=== PATIENT | female | born 1965 | race Caucasian/White ===

== ENCOUNTER 2025-10-29 14:15 | Outpatient (CLI) | payer OTHER, SELFPAY ==
--- OUTSIDE RECORDS SUMMARY | 2025-10-29 16:11 | XMS_ITS | Patient Health Record ---
Author Organization [facility] Address [address] [place], [place] [id number] Care Team Providers Care Laborer Prestressed Concrete Name Role Phone MARY TOMLIN Unavailable [phone] Reason For Referral No Information Social History Social History Additional Details Category Social Info Options Details Migrated Social History Migrated Social History Smoking Status : Current every day smoker , History of tobacco use : Current every day smoker , Alcohol intake : Plan Of Treatment No Information Insurance Providers Payer Name Payer Address Payer Phone Subscriber Number Group Number Insured Name Patient Relationship to Insured Coverage Start Date Coverage End Date [facility] [address] [place] [address] [id number] LINSEY MENJIVAR Self - patient is the insured
--- OUTSIDE RECORDS SUMMARY | 2025-10-29 16:11 | XMS_ITS | Clinical Summary ---
Author Organization [facility] [employer] Address [address] [place] [address] Care Team Providers Care Lead Front End Developer Name Role Phone [address] Primary Care Prov ider Source Comments [facility] [employer],non-owned Affiliates and Associated Physician Practices is amultiple site organization consisting of ambulatory clinics and hospital sitesin [place], [place], [place] and [place]. This disclosure is being madepursuant to the Care Everywhere program and may not contain all information available regarding this patient. Last updated 18.[facility] [employer] Allergies No known active allergies Medications * Be aware that medications may not be up to date on this document. Alwaysverify current medications with the patient. ferrous sulfate 325 (65 FE) MG tablet 02/28/2018 Active triamcinolone acetonide (KENALOG) 0.1 % cream Apply to affected area 2 times daily 30 g 1 04/07/2019 Active Social History Tobacco Use Types Packs/Day Years Used Date Smoking Tobacco: Every Day Smokeless Tobacco: Never Comments Unknown Sex and Gender Information Value Date Recorded Sex Assigned at Female 05/22/2023 5:34 PM CDT Legal Sex Female 9:20 AM CDT Gender Identity Female 05/22/2023 5:34 PM CDT Sexual Orientation Not on file Last Filed Vital Signs Vital Sign Reading Time Taken Comments Blood Pressure 102/60 04/26/2019 9:56 AM CDT Pulse 69 04/26/2019 9:56 AM CDT Temperature 36.3 C (97.4 F) 04/26/2019 9:56 AM CDT Respiratory Rate 16 04/26/2019 9:56 AM CDT Oxygen Saturation 99% 04/26/2019 9:56 AM CDT Inhaled Oxygen Concentration - - Weight 56.7 kg (125 lb) 04/26/2019 9:56 AM CDT Height 152.4 cm (5') 04/26/2019 9:56 AM CDT Body Mass Index 24.41 04/26/2019 9:56 AM CDT Plan of Treatment Health Maintenance Due Date Last Done Comments COLOGUARD (AGES 45-75) - COL ON CA SCREENING 1967 COLON MONITORING 1967 COLONOSCOPY - COLON CA SCREENING 1967 CT COLONOGRAPHY - COLON CA SCREENING 1967 Colorectal Cancer Screening 1967 FIT - COLON CA SCREENING 1967 FLEX SIG - COLON CA SCREENING 1967 LIPID TESTING 1967 MAMMOGRAM 1967 HIV SCREENING 1982 HEPATITIS C SCREENING 12/16/1985 DTAP/TDAP/TD VACCINES (1 - Tdap) 1986 HEPATITIS B VACCINE (1 of 3 - 19+ 3-dose series) 1986 PNEUMOCOCCAL VACCINE 50+ (1 of 1 - PCV) 2017 ZOSTER VACCINE (1 of 2) 2017 DEPRESSION SCREENING 11/08/2024 COVID-19 VACCINE (1 - 2024-2 6 season) 2025 INFLUENZA VACCINE (#1) 2025 HIB VACCINE Aged Out No longer eligi ble based on patient's age to complete this topic HPV VACCINE Aged Out No longer eligi ble based on patient's age to complete this topic MENINGOCOCCAL (Group B) VACC INE SHARED DECISION-MAKING Aged Out No longer eligibl e based on patient's age to complete this topic MENINGOCOCCAL GROUPS A/C/Y/W VACCINE Aged Out No longer eligible b ased on patient's age to complete this topic Insurance Care Teams Lead Front End Developer Relationship Specialty Start Date End Date [facility] [address] [place] [address] PCP - General Family Medicine 04/07/19
--- OUTSIDE RECORDS SUMMARY | 2025-10-29 16:11 | XMS_ITS | Clinical Summary ---
Author Organization [facility] Address [address] [place] [address] Care Team Providers Care Program Arranger Name Role Phone Melissa Ruiz NP Primary Care Provider + [phone] Allergies No known active allergies Medications ferrous sulfate 325 mg (65 mg of elemental iron) tablet 8 Active atorvastatin (LIPITOR) 20 mg tablet 9 Active CALCIUM 600 600 mg calcium (1,500 mg) tablet 600 mg 2 (two) times a day 9 Active cholecalciferol (VITAMIN D-3) 2,000 unit tablet 9 Active ALLERGY RELIEF,DIPHENHY DRAMIN, 25 mg capsule 9 Active EPINEPHrine 0.3 mg/0.3 mL auto-injection syringe 9 Active ibuprofen (ADVIL,MOTRIN) 800 mg tablet 9 Active triamcinolone (KENALOG) 0.1 % cream Apply topically 2 times daily 9 Active fluticasone furoate-vilante rol (BREO ELLIPTA) 100-25 mcg/dose diskus inhaler Inhale 1 puff daily Rinse mouth with water after use. Do not swallow. 1 each 3 9 Active albuterol HFA (PROVENTIL HFA,VENTOLIN HFA,PROAIR HFA) 90 mcg/actuation inhaler Inhale 2 puffs every 6 (six) hours as needed for wheezing or shortness of breath 1 Inhaler 3 0 Active lisinopriL (PRINIVIL,ZESTR [place]) 20 mg tablet Take 1 tablet (20 mg total) by mouth daily 120 tablet 0 Active Active Problems Problem Noted Date Diagnosed Date Facial paresthesia 07/23/2015 Iron deficiency anemia, unspecified 07/23/2015 Trigeminal neuralgia 01/23/2010 Surgical History Surgery Date Site/Laterality Comments [place] DSTRJ TRIGEMINAL NRV SUPRAORB INFRAORB BRANCH Craniotomy For Suboccipital Cranial Nerve Decompression - R trigeminal decompression, 03/25/2010 (Added by TW Conv) Medical History Medical History Date Comments Hypertension Smoking Family History Medical History Relation Name Comments Breast cancer Neg Hx Relation Name Status Comments Father Mother Social History Tobacco Use Types Packs/Day Years Used Date Smoking Tobacco: Every Day Cigarettes Comments:Started at age 32 Alcohol Use Standard Drinks/Week Comments Not Currently 0 (1 standard drink = 0.6 oz pur e alcohol) Comments No Sex and Gender Information Value Date Recorded Sex Assigned at Not on file Legal Sex Female 4:35 AM SHOT BLASTER Gender Identity Female 04/14/2022 8:44 AM CDT Sexual Orientation Not on file Obstetrics History Para Term AB IAB SAB Ectopic Multiple Livin g Live Births 4 4 4 Date Outcome GA Total Labor Labor/2nd/3rd Weight Sex Type Anes PTL Mony A1 A5 Name Clin Term Term Term Term Last Filed Vital Signs Vital Sign Reading Time Taken Comments Blood Pressure 176/98 10/07/2020 7:09 PM SHOT BLASTER Pulse 64 10/07/2020 7:09 PM SHOT BLASTER Temperature 36.4 C (97.6 F) 10/07/2020 4:46 PM SHOT BLASTER Respiratory Rate 16 10/07/2020 7:09 PM SHOT BLASTER Oxygen Saturation 100% 10/07/2020 7:09 PM SHOT BLASTER Inhaled Oxygen Concentration - - Weight 58.2 kg (128 lb 6.4 oz) 08/10/2019 9:36 A M CDT Height 152.4 cm (5') 10/12/2022 2:43 PM SHOT BLASTER Body Mass Index 25.08 08/10/2019 9:36 AM CDT Plan of Treatment Health Maintenance Due Date Last Done Comments Cervical Cancer Screening 1967 Colon Cancer Screening-Colonoscopy 1967 Depression Screening 1967 Hepatitis C Screening 1967 DTaP/Tdap/Td Vaccine (1 - Tdap) 1978 Hepatitis B Screening 1985 Regular Well Visit/Exam 18-64 1985 Zoster Vaccine (1 of 2) 2017 Breast Cancer Screening-Mammogram 10/12/2023 022 Covid-19 Vaccine (2024- 6 season) 2025 08/04/2022, 02/27/2021, 02/04/2021 Influenza Vaccine (#1) 2025 , 07/26/2019, 08/26/2017, Additional history exists Pneumococcal vaccine <65 Completed 06/24/2022 Procedures Procedure Name Priority Date/Time Associated Diagnosis Comments SCREENING MAMMOGRAM BILATERAL W SRINI Schedule Routine, Read Routine (OP Routine) 10/12/2022 2:49 PM SHOT BLASTER Screening mammogram, encounter for from Last 3 Months or Most Recently Relevant to Health Maintenance Results * (ABNORMAL) Screening Mammogram Bilateral W Srini (10/12/2022 2:49 PM SHOT BLASTER) Anatomical Region Laterality Modality Breast Bilateral Mammography 10/26/2022 2:45 PM SHOT BLASTER Impressions 10/26/2022 2:45 PM SHOT BLASTER 1. Two left breast asymmetries on the CC view. Recommend diagnostic left breast mammogram with possible ultrasound. 2. No evidence of malignancy in the right breast. Recommend screening right breast mammogram in one year. BI-RADS: 0 - Additional imaging evaluation is necessary. The patient will be contacted. Electronically signed by: Eros Mccartney M.D. Narrative 10/26/2022 2:45 PM SHOT BLASTER EXAMINATION: SCREENING MAMMOGRAM BILATERAL W SRINI ORDERING HEALTHCARE PROVIDER: MELISSA RUIZ HISTORY: Routine screening mammography. COMPARISON: 04/27/2019, 01/03/2014, 12/12/2013 TECHNIQUE: CC and MLO views of the bilateral breasts were obtained with digital technique using breast tomosynthesis with C view. Computer aided detection was utilized. FINDINGS: DENSITY: The tissue of the bilateral breasts is heterogeneously dense, which may obscure small masses. BREASTS: There is an outer left breast asymmetry on the CC view at middle depth. There is an outer left breast asymmetry on the CC view at posterior depth. There are no suspicious masses, calcifications or architectural distortions in the right breast. Melissa Ruiz FILE CLERK IMG MAMMO PROCEDURES Final R esult from Last 3 Months or Most Recently Relevant to Health Maintenance Insurance [facility] [employer] Care Teams Program Arranger Relationship Specialty Start Date End Date Melissa Ruiz NP [address] [address] PCP - General Family Medicine 09/01/22
--- OUTSIDE RECORDS SUMMARY | 2025-10-29 16:12 | XMS_ITS | Clinical Summary ---
Author Organization [facility] Address [address] [place] [address] Care Team Providers Care Agility Instructor Name Role Phone Unavailable Primary Care Provider Unavailabl e Allergies No known active allergies Medications lisinopril 5 MG tablet 02/28/2018 Active vitamin D3, cholecalciferol, 5000 UNITS capsule 02/28/2018 Active Ferrous Sulfate (IRON) 325 (65 Fe) MG tablet 02/28/2018 Active ibuprofen 800 MG tablet 02/28/2018 Active Social History Tobacco Use Types Packs/Day Years Used Date Smoking Tobacco: Every Day Cigarettes 0.3 30 Smokeless Tobacco: Never Tobacco Cessation:Ready to Q uit: No; Counseling Given: Yes Alcohol Use Standard Drinks/Week Comments No 0 (1 standard drink = 0.6 oz pur e alcohol) Comments Unknown Sex and Gender Information Value Date Recorded Sex Assigned at Not on file Legal Sex Female 7:55 PM CDT Gender Identity Not on file Sexual Orientation Not on file Last Filed Vital Signs Vital Sign Reading Time Taken Comments Blood Pressure 125/74 05/05/2018 12:25 PM CDT Pulse 63 05/05/2018 12:25 PM CDT Temperature 37.1 C (98.8 F) 05/05/2018 9:45 AM CDT Respiratory Rate 17 05/05/2018 12:25 PM CDT Oxygen Saturation 99% 05/05/2018 12:25 PM CDT Inhaled Oxygen Concentration - - Weight 56.7 kg (125 lb) 03/30/2018 12:01 AM CDT Height 149.9 cm (4' 11) 03/30/2018 12:01 AM CDT Body Mass Index 25.25 03/30/2018 12:01 AM CDT Plan of Treatment Health Maintenance Due Date Last Done Comments Cervical Cancer Screening Pa p Smear (Age 30 to 64) Every 3 Years 1967 Annual Physical 1970 Hepatitis C 1985 DTaP, Tdap and Td Vaccines ( 1 - Tdap) 1986 Hepatitis B Vaccines (1 of 3 - 19+ 3-dose series) 1986 Pneumococcal Vaccine: 50+ Ye ars (1 of 2 - PCV) 1986 Cervical Cancer Screening Pa p with HPV Testing (Age 30 to 64) Every 5 Years 1997 Cervical Cancer Screening with HPV 1997 Mammogram Screening 2007 Zoster Vaccines (1 of 2) 2017 COVID-19 Vaccine ( - 2024-2 6 season) 2025 Influenza Adult (#1) 2025 Colorectal Cancer Screening Colonoscopy (10 Years) 05/05/2028 05/05/2018 Hepatitis A Vaccines Aged Out No long er eligible based on patient's age to complete this topic Meningococcal B Vaccine Aged Out No l onger eligible based on patient's age to complete this topic Meningococcal Vaccine Aged Out No elena david eligible based on patient's age to complete this topic RSV Immunizations Under 20 Months Aged Out No longer eligible based on patient's age to complete this topic Procedures Procedure Name Priority Date/Time Associated Diagnosis Comments COLONOSCOPY GENERIC (SCAN ORDER) Routine 05/05/2018 from Last 3 Months or Most Recently Relevant to Health Maintenance Results * COLONOSCOPY (05/05/2018) us Documents Scanned SCANNING Final Result from Last 3 Months or Most Recently Relevant to Health Maintenance Insurance
--- OUTSIDE RECORDS SUMMARY | 2025-10-29 16:12 | XMS_ITS | Patient Health Record ---
Author Organization [facility] ([address]) Address [address] [place] [address] Care Team Providers Care Resistor Winder Name Role Phone Pooja Yihy Primary Care Provider Kim Chambers Unavailable [phone] Reason For Referral No Information Medications Medication SIG (Take, Route, Frequency, Duration) Notes Start Date End Date Status Breo Ellipta 100 MCG-25 MCG/INH 1 PUFF(S) INHALED ONCE A DAY; Duration: 30 DAY(S) *Please review and pick correct strength-formulat ion from Training Advisor options. If intended option is not shown, discontinue and re-order from Quick Search* Active Lisinopril 5 MG TK 1 T PO QD; Duration: 30 Active Triamcinolone Acetonide 0.1 % 1 alverto applied topically TID; Duration: 20 day(s) Active hydrOXYzine HCl 50 MG 1 tab(s) orally QID, PRN; Duration: 20 day(s) Active BREO ELLIPTA 100 mcg-25 mcg/inh 1 puff(s) inhaled once a day; Duration: 30 day(s) Active TRIAMCINOLONE TOPICAL 0.1% 1 alverto applied topically TID; Duration: 20 day(s) Active LISINOPRIL 5 mg TK 1 T PO QD; Duration: 30 Active ZYRTEC 10 mg 1 tab(s) orally bid; Duration: 90 days Active BENADRYL 50 mg 1 cap(s) orally TID; Duration: 5 day(s) Active HYDROXYZINE hydrochloride 50 mg 1 tab(s) orally QID, PRN; Duration: 20 day(s) Active SINGULAIR 10 mg 1 tab(s) orally once a day; Duration: 90 days Active ZyrTEC Allergy 10 MG 1 tab(s) orally bid; Duration: 90 days Active Benadryl Allergy 50 MG 1 CAP(S) ORALLY TID; Duration: 5 DAY(S) *Please review and pick correct strength-formulat ion from Training Advisor options. If intended option is not shown, discontinue and re-order from Quick Search* Active Singulair 10 MG 1 tab(s) orally once a day; Duration: 90 days Active Calcium 600 + D 600 MG-200 UNITS 1 TAB(S) ORALLY 2 TIMES A DAY *Please review and pick correct strength-formulat ion from Training Advisor options. If intended option is not shown, discontinue and re-order from Quick Search* Active Lipitor 20 MG 1 tab(s) orally once a day; Duration: 30 day(s) Active SINGULAIR 10 mg 1 tab(s) orally once a day; Duration: 30 day(s) Active Albuterol Sulfate HFA 108 (90 Base) MCG/ACT 2 puff(s) inhaled 4 times a day; Duration: 30 day(s) Active CALCIUM 600+D 600 mg-200 units 1 tab(s) orally 2 times a day Active KEFLEX 500 MG 1 CAP(S) ORALLY QID; Duration: 10 DAY(S) *Please review for potential replacement for e-prescription and drug interaction check* Not-Taking ZYRTEC 10 mg 1 tab(s) orally once a day Active RANITIDINE 150 MG 1 CAP(S) ORALLY 2 TIMES A DAY *Please review for potential replacement for e-prescription and drug interaction check* Active ALBUTEROL 90 mcg/inh 2 puff(s) inhaled 4 times a day; Duration: 30 day(s) Active Singulair 10 MG 1 tab(s) orally once a day; Duration: 30 day(s) Active LIPITOR 20 mg 1 tab(s) orally once a day; Duration: 30 day(s) Active ZyrTEC Allergy 10 MG 1 tab(s) orally once a day Active Immunizations Vaccine Route Administration Date Status Comme nts Flucelvax Unknown 07/26/2019 Administered Social History Tobacco Use: Social History Observation Description Date Details (start date - stop date) Current Smoker NA - NA Smoking Smart Form: Question Answer Notes Are you a: current smoker How often do you smoking Cigarettes? every day How many cigarettes a day do you smoke? 6-10 Problems Problem Type SNOMED Code ICD Code Onset Dates Problem Status W/U Status Risk Notes Problem Idiopathic urticaria (93829826) Idiopathic urticaria (L50.1) Active confirmed Problem Chronic allergic conjunctivitis (68437734) Other chronic allergic conjunctivitis (H10.45) Active confirmed Problem Allergic rhinitis caused by pollen (disorder) (52890421) Allergic rhinitis due to pollen (J30.1) Active confirmed Problem Allergic rhinitis (05246942) Other allergic rhinitis (J30.89) Active confirmed Problem Allergic rhinitis (35139138) Allergic rhinitis, unspecified (J30.9) Active confirmed Problem Chronic rhinitis (44916358) Chronic rhinitis (J31.0) Active confirmed Problem Uncomplicated moderate persistent asthma (692368103) Moderate persistent asthma, uncomplicated (J45.40) Active confirmed Plan Of Treatment No Information Insurance Providers Payer Name Payer Address Payer Phone Subscriber Number Group Number Insured Name Patient Relationship to Insured Coverage Start Date Coverage End Date [facility] [address] [place] [address] [phone] [id number] Jared Joaquin Spouse - patient is the spouse of the insured Medical (General) History Medical History History ICD Code Trigeminal neuralgia - followed by Dr. Maverick Copeland Surgical History Surgery Date(Month/Year) Surgery for trigeminal neuralgia 2009 Hospitalization History Reason Date(Month/Year) Surgery for trigeminal neuraglia 2009
--- NOTE | 2025-10-30 10:54 | WPDPFTINT ---
PFT Procedure Performed PFT Procedure Performed Spirometry with Pre/Post Bronchodilator Plethysmography (Lung Vol) Diffusing Cap (DLCO) Flow Vol Loop PFT Interpretation This is a pulmonary function test with pre and post-bronchodilator spirometry, plethysmography and diffusing capacity. The test was performed and results interpreted in accordance with the 2019 and 2005 ATS/ERS Task Force guidelines respectively using the Global Lung Function Initiative-2012 reference equations. Patient demonstrated good effort and cooperation. Reproducibility criteria were met. The quality of the pre bronchodilator spirometry maneuver was Grade A and post bronchodilator spirometry maneuver was Grade A. Findings: Spirometry: The contour the inspiratory and expiratory flow tracing are normal. The pre bronchodilator FVC is 2.52 L, 105% predicted. The pre bronchodilator FEV1 is 2.08 L, 108% predicted. The pre bronchodilator FEV1: FVC ratio is 83%. The post bronchodilator FVC is 2.49 L, representing 1% decrease. The post bronchodilator FEV1 is 2.07 L, representing 1% decrease. The post bronchodilator FEV1: FVC ratio is 83%. Plethysmography: The total lung capacity is 4.23 L, 108% predicted. The functional residual capacity is 2.23 L, 100% predicted. The residual volume is 1.71 L, 107% predicted. Diffusing capacity: The diffusing capacity unadjusted for hemoglobin and carboxyhemoglobin is 15.2, 75% predicted. The diffusing capacity adjusted for alveolar volume is 4.63, 99% predicted. Impression: The spirometry is normal without evidence of an obstructive abnormality. There is no significant improvement after inhaling a single dose of albuterol. The lung volumes are normal. The diffusing capacity is normal. There are no prior studies for comparison
== END 2025-10-29 14:16 | disposition home or self-care (01) ==
PROVIDERS: Visit Provider Internal Medicine Pulmonary Disease
DX: R06.09 Other forms of dyspnea (principal)
CPT/HCPCS: 94060; 94726; 94729